=== PATIENT | male | born 2000 | race Hispanic/Latino ===

== ENCOUNTER 2019-07-31 22:41 | Emergency (ER) | payer OTHER ==
[~2019-07-31] VITALS: Ht 170.2 cm; Wt 65.0 kg
[2019-07-31 22:41] VITALS: BP 156/81
== END 2019-08-01 00:03 | disposition home or self-care (01) ==
LOC: M ED 22:41
DX: J02.9 Acute pharyngitis, unspecified (principal); R05 Cough

== ENCOUNTER 2019-08-27 21:48 | Emergency (ER) | payer OTHER ==
[~2019-08-27] VITALS: Ht 170.2 cm; Wt 73.4 kg
[2019-08-27 22:38] LABS: HEMATOCRIT 48.3 % (42.0-52.0); HEMOGLOBIN 17.5 g/dl (13.5-17.5); MEAN CORPUSCULAR HEMOGLOBIN 32.7 pg (27.0-33.0); MEAN CORPUSCULAR HGB CONC 36.2 g/dl (32.0-36.5); MEAN CORPUSCULAR VOLUME 90.3 fl (80.0-96.0); PLATELET COUNT, AUTOMATED 217 10^3/uL (150-450); RED BLOOD COUNT 5.35 10^6/uL (4.30-6.10); WHITE BLOOD COUNT 9.2 10^3/uL (4.0-10.0)
[2019-08-27 22:57] LABS: AMPHETAMINES LEVEL URINE NEGATIVE (NEGATIVE); BARBITURATES URINE NEGATIVE (NEGATIVE); BENZODIAZEPINES URINE NEGATIVE (NEGATIVE); CANNABINOIDS URINE NEGATIVE (NEGATIVE); COCAINE METABOLITE URINE NEGATIVE (NEGATIVE); METHADONE URINE NEGATIVE (NEGATIVE); OPIATES URINE NEGATIVE (NEGATIVE); PHENCYCLIDINE URINE NEGATIVE (NEGATIVE)
[2019-08-27 23:07] LABS: ACETAMINOPHEN LEVEL < 2.0 UG/ML (10.0-30.0); ALBUMIN 4.4 GM/DL (3.2-5.2); ALT/SGPT 26 U/L (12-78); BILIRUBIN,DIRECT 0.2 MG/DL (0.0-0.2); BILIRUBIN,TOTAL 0.7 MG/DL (0.2-1.0); BLOOD UREA NITROGEN 17 MG/DL (7-18); CALCIUM LEVEL 8.9 MG/DL (8.5-10.1); CARBON DIOXIDE LEVEL 31 MEQ/L (21-32); CHLORIDE LEVEL 105 MEQ/L (98-107); CREATININE FOR GFR 1.01 MG/DL (0.70-1.30); ETHYL ALCOHOL (ETHANOL) < 0.003 % (0.000-0.010); GLOMERULAR FILTRATION RATE > 60.0 (>60); GLUCOSE, FASTING 84 MG/DL (70-100); POTASSIUM SERUM 4.2 MEQ/L (3.5-5.1); SALICYLATE LEVEL < 1.7 MG/DL (5.0-30.0); SODIUM LEVEL 140 MEQ/L (136-145); TOTAL PROTEIN 8.3 GM/DL (6.4-8.2)
[2019-08-27 23:26] VITALS: BP 153/70
== END 2019-08-27 23:27 | disposition home or self-care (01) ==
LOC: M ED 21:48
DX: F32.9 Major depressive disorder, single episode, unspecified (principal)
CPT/HCPCS: 36415; 80048; 80076; 80307; 84443; 85027; 99284; G0480

== ENCOUNTER 2019-08-31 14:27 | Inpatient (IN) | payer OTHER ==
[~2019-08-31] VITALS: Ht 170.2 cm; Wt 73.3 kg
[2019-08-31 15:42] LABS: HEMATOCRIT 45.7 % (42.0-52.0); HEMOGLOBIN 16.5 g/dl (13.5-17.5); MEAN CORPUSCULAR HEMOGLOBIN 31.7 pg (27.0-33.0); MEAN CORPUSCULAR HGB CONC 36.1 g/dl (32.0-36.5); MEAN CORPUSCULAR VOLUME 87.9 fl (80.0-96.0); PLATELET COUNT, AUTOMATED 212 10^3/uL (150-450); WHITE BLOOD COUNT 10.7 10^3/uL (4.0-10.0)
[2019-08-31 16:06] LABS: AMPHETAMINES LEVEL URINE NEGATIVE (NEGATIVE); BARBITURATES URINE NEGATIVE (NEGATIVE); BENZODIAZEPINES URINE NEGATIVE (NEGATIVE); CANNABINOIDS URINE NEGATIVE (NEGATIVE); COCAINE METABOLITE URINE NEGATIVE (NEGATIVE); METHADONE URINE NEGATIVE (NEGATIVE); OPIATES URINE NEGATIVE (NEGATIVE); PHENCYCLIDINE URINE NEGATIVE (NEGATIVE)
[2019-08-31 16:24] LABS: ACETAMINOPHEN LEVEL < 2.0 UG/ML (10.0-30.0); ALBUMIN 4.3 GM/DL (3.2-5.2); ALT/SGPT 24 U/L (12-78); BILIRUBIN,DIRECT 0.3 MG/DL (0.0-0.2); BILIRUBIN,TOTAL 0.9 MG/DL (0.2-1.0); BLOOD UREA NITROGEN 13 MG/DL (7-18); CARBON DIOXIDE LEVEL 28 MEQ/L (21-32); CHLORIDE LEVEL 104 MEQ/L (98-107); CREATININE FOR GFR 0.82 MG/DL (0.70-1.30); ETHYL ALCOHOL (ETHANOL) < 0.003 % (0.000-0.010); GLOMERULAR FILTRATION RATE > 60.0 (>60); GLUCOSE, FASTING 108 MG/DL (70-100); POTASSIUM SERUM 3.8 MEQ/L (3.5-5.1); SALICYLATE LEVEL < 1.7 MG/DL (5.0-30.0); SODIUM LEVEL 137 MEQ/L (136-145); THYROID STIMULATING HORMONE 0.817 uIU/ML (0.358-3.740); TOTAL PROTEIN 7.9 GM/DL (6.4-8.2)
[2019-08-31] MEDS ORDERED: MAALOX 30 ML SUSP *UDC PO PRN (20:45)
[2019-08-31] MEDS ORDERED: OLANZapine ORAL DISINTEGRATING TAB 5MG PO PRN (20:45)
[2019-08-31] MEDS ORDERED: ACETAMINOPHEN TAB 650MG DOSE (2X325MG) PO PRN (20:45)
[2019-08-31] MEDS ORDERED: MOM 30ML SUSPENSION UDC PO PRN (20:45)
[2019-08-31] MEDS ORDERED: traZODone 50 MG TAB PO PRN (20:45)
[2019-08-31 22:08] VITALS: BP 140/85
[2019-09-01 06:13] VITALS: BP 123/78
--- NOTE | 2019-09-01 09:06 | MHHPEPDOC ---
General Date Of Admission: August 31, 2019 Legal Status: 9.13 Chief Complaint "It's whatever" History of Present Illness HISTORY OF THE PRESENT ILLNESS: Patient is a 19 -year-old , male, who Pr esents to [facility] with this chain of command after reporting passive ideation. The patient was admitted out of an abundance off caution on a voluntary status as he wished of care. When the patient was met with he was unusual in the fact that he was fairly unengaged in the conversation. He generally referred to generalities, stating "all that stuff" without wanting to specify any further about symptoms or other presenting problems. He would generally refer to "family health" or other issues. He generally was uninterested in discussing anything in-depth but strange enough was interested in counseling. After discussion, the patient reported to continued stay to try medication. was amenable to continued stay to try medication. Psychiatric Review of Systems Depression (2 or more weeks): decreased energy Valerie (4 or more days of): denies Psychosis: denies PTSD: denies Anxiety: stressor related anxiety Past Psychiatric History Previous Psychiatric Diagnosis: Depression. Previous Psychiatric Admissions: none. Suicide Attempts: denies . Psychiatric Follow-up: [facility]. Psychiatric medications: none. Past Medical History Medical Problems no significant history Addiction History denies Social History Childhood: [place], difficult by reported Abuse/Trauma:denies hx of abuse, reports seeing a friend Current Living Situation: lives in the [facility] . Education: HS Grad. 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 Social Support: some friends . Legal: none noted. Marital: single, unmarried . Mental Status Examination General Appearance: well groomed Build: average Demeanor: guarded Eye Contact: average Activity: average Behavior: uncooperative Speech: clear Mood: euthymic Mood "okay" Affect: full Thought Process: logical/linear Thought Content (Delusions): denies SI, HI, AVH Thought Content (Other): none reported Thought Content (Aggressive): none reported Perception (Hallucinations): none reported Perception (Other): none reported Cognition (Impairment of): none reported Cognition(Intelligence Est.): average Oriented: Awake, Alert Insight: poor Judgment: Fair Psychosis: Denies A-FIB/CHADSVASC A-FIB History Current/History of A-Fib/PAF?: No Assessment 19 yo with a history of reported depression present voluntarily to unit to for treatment but seems very uninterested in care, appears to have primarily stressors and there is some concerns that there could be a secondary gain to avoid. Problem List Problems: (1) Suicidal ideation Status: Resolved Problem Text: situational stressor related likley (2) Depressed mood Status: Acute Response to Treatment: Improving Discussed With: Nurse Problem Text: start sertraline 25mg daily, discussed risks and benifits as well common side effects (3) Situational disturbance Status: Chronic Response to Treatment: Uncontrolled Problem Text: situational problem with (4) Malingering Status: Acute Response to Treatment: Stable Problem Text: Seems to be very uninvovled in treatment, presenting on his own and volentarily but only seeming to take medications to stay longer Initial Treatment Plan 1. Patient was admitted on a [9.13] status. 2. Complete history was obtained. 3. With patients permission, family will be contacted and database will be expanded. 4. Patients medication regimen will be reviewed and changed accordingly. 5. Patient will be provided with protected environment. 6. Patient will be treated with individual, group, and milieu therapies. 7. Patient will receive supportive psych-education. 8. Discharge planning will commence immediately. 9. Outpatient follow-up treatment will be strongly recommended. 10. The initial treatment plan will focus initially on: * Depression. * Risk for suicide. ESTIMATED LENGTH OF STAY: 2-3 DAYS. TIME SPENT COUNSELING AND COORDINATING INITIAL CARE: 70 minutes with 50% of time on c/c. Vital Signs Vital Signs Date Time Temp Pulse Resp B/P (MAP) Pulse Ox O2 Delivery O2 Flow Rate FiO2 09/01/19 06:13 97.6 69 12 123/78 (93) 08/31/19 21:18 97 Room Air Laboratory Data 24H Labs Laboratory Tests 2 08/31/19 15:21: Nucleated Red Blood Cells % (auto) 0.0, Anion Gap 5L, Glomerular Filtration Rate > 60.0, Calcium Level 9.0, Total Bilirubin 0.9, Direct Bilirubin 0.3H, Aspartate Amino Transf (AST/SGOT) 10, Alanine Aminotransferase (ALT/SGPT) 24, Alkaline Phosphatase 74, Total Protein 7.9, Albumin 4.3, Albumin/Globulin Ratio 1.2, Thyroid Stimulating Hormone (TSH) 0.817, Salicylates Level < 1.7L, Urine Opiates Screen NEGATIVE, Urine Methadone Screen NEGATIVE, Acetaminophen Level < 2.0L, Urine Barbiturates Screen NEGATIVE, Urine Phencyclidine Screen NEGATIVE, Urine Amphetamines Screen NEGATIVE, Urine Benzodiazepines Screen NEGATIVE, Urine Cocaine Metabolite Screen NEGATIVE, Urine Cannabinoids Screen NEGATIVE, Ethyl Alcohol Level < 0.003 CBC/BMP Laboratory Tests 08/31/19 15:21 Medications No Active Prescriptions or Reported Meds Allergies Coded Allergies: No Known Allergies (Unverified , 07/31/19) HARPER MAGALLANES DO September 01, 2019 09:06
--- NOTE | 2019-09-01 16:54 | HPEPDOC ---
General Date of Admission August 31, 2019 at 20:36 Date of Service: September 01, 2019 Chief Complaint The patient is a 19-year-old male admitted with a reason for visit of Unspecified Depressive Disorder. Source: Patient Exam Limitations: No limitations Timing/Duration: Unsure Severity: Moderate History of Present Illness Patient is 19 years old male w past medical history of anxiety and depression, who was admitted in the hospital with increased level of anxiety and depression He denied any cardiovascular problem, breathing problem, GI problem or dysuria. He denies fever, chills, nausea, vomiting, shortness of breath, palpitations, diarrhea or dysuria Home Medications No Active Prescriptions or Reported Meds Allergies Coded Allergies: No Known Allergies (Unverified , 07/31/19) Past Medical History Medical History Anxiety and depression Family History Mother has coronary artery diseases and MS Social History * Smoker: Denies Alcohol: Denies Drugs: denies A-FIB/CHADSVASC A-FIB History Current/History of A-Fib/PAF?: No Current PO Anticoag Therapy: No Review of Systems Constitutional: Denies: Chills Eyes: Denies: Pain, Vision change ENT: Denies: Head Aches Skin: Denies: Rash, Lesions Pulmonary: Denies: Dyspnea, Cough Cardiovascular: Denies: Palpitations Gastrointestinal: Denies: Nausea Genitourinary: Denies: Dysuria Hematologic: Denies: Bruising Endocrine: Denies: Polydipsia, Polyphagia Musculoskeletal: Denies: Neck Pain Neurological: Denies: Weakness Psych: Reports: Anxiety Physical Examination General Exam: Positive: Alert, Cooperative, Mild Distress Eye Exam: Positive: PERRLA ENT Exam: Positive: Atraumatic Neck Exam: Positive: Supple Chest Exam: Positive: Clear to auscultation Heart Exam: Positive: Rate Normal Telemetry: Positive: No significant arrhythmia Abdomen Exam: Positive: Normal bowel sounds Extremity Exam: Negative: Clubbing, Cyanosis Skin Exam: Positive: Nl turgor and temperature Neuro Exam: Positive: Normal Gait, Strength at 5/5 X4 ext, Cranial Nerves 3-12 NL Psych Exam: Positive: Anxiety Vital Signs Vital Signs Date Time Temp Pulse Resp B/P (MAP) Pulse Ox O2 Delivery O2 Flow Rate FiO2 09/01/19 09:54 Room Air 09/01/19 06:13 97.6 69 12 123/78 (93) 08/31/19 21:18 97 Assessment/Plan Patient is 19 years old male w past medical history of anxiety and depression, who was admitted in the hospital with increased level of anxiety and depression He denied any cardiovascular problem, breathing problem, GI problem or dysuria. He denies fever, chills, nausea, vomiting, shortness of breath, palpitations, diarrhea or dysuria Problems (1) Depression Status: Acute Problem Text: We'll defer treatment of depression and anxiety to psych team Plan / VTE VTE Prophylaxis Ordered?: No VTE Exclusion Mechanical Proph: Low Risk for VTE LÓPEZ COUCH DO September 01, 2019 16:54
[2019-09-02 06:14] VITALS: BP 127/74
--- NOTE | 2019-09-02 09:05 | MHIPNPDOC ---
[facility] Progress Note Progress Note The patient was seen on 09/03/19. The patient is seen in follow-up today, he reports that he is doing better and has been making improvements. For some reason he was not able to be given the certainly is the order did not go through. He reports otherwise he's she doing quite well and has been engaged on the unit. He reports he is not had any other problems other than some insomnia for what she's taken trazodone. There is a self-report he is generally pleasant without any major problems. The patient is interested in being discharged. Vital Signs Vital Signs Date Time Temp Pulse Resp B/P (MAP) Pulse Ox O2 Delivery O2 Flow Rate FiO2 09/02/19 06:14 97.7 64 12 127/74 (91) Room Air 08/31/19 21:18 97 Current Medications Current Medications Medications (Trade) Dose Ordered Sig/Chaz Route PRN Reason Start Time Stop Time Status Last Admin Dose Admin Acetaminophen (Tylenol Tab) 650 mg Q6HP PRN PO HEADACHE or DISCOMFORT 08/31/19 20:45 09/01/19 20:52 Al Hydrox/Mg Hydrox/Simethicone (Mylanta) 30 ml Q4HP PRN PO HEARTBURN/INDIGESTION 08/31/19 20:45 Home Med (Med Rec Complete!) ASDIRECTED XX 08/31/19 19:00 08/31/19 18:59 DC Magnesium Hydroxide (Milk Of Magnesia) 30 ml DAILYPRN PRN PO CONSTIPATION 08/31/19 20:45 Olanzapine (ZyPREXA ZYDIS) 5 mg Q4HP PRN PO AGITATION 08/31/19 20:45 Trazodone HCl (Desyrel) 50 mg QHSP PRN PO INSOMNIA 08/31/19 20:45 Allergies Coded Allergies: No Known Allergies (Unverified , 07/31/19) Review of Systems Review of Systems Pulmonary: Denies: Dyspnea, Cough Cardiovascular: Denies: Chest Pain, Palpitations Mental Status Examination General Appearance: well groomed Build: average Demeanor: average Eye Contact: average Activity: average Behavior: cooperative Speech: clear Mood: euthymic Mood "Fine" Affect: full Thought Process: logical/linear Thought Content (Delusions): denies SI, HI, AVH Thought Content (Aggressive): none reported Perception (Hallucinations): none reported Perception (Other): none reported Cognition (Impairment of): none reported Cognition(Intelligence Est.): average Insight: fair Judgment: Fair Psychosis: Denies Problem List Problems: (1) Suicidal ideation Status: Resolved (2) Depressed mood Status: Acute Response to Treatment: Stable Problem Text: Defer to outpatient as to whether medication is needed, likely adjustment disorder at this time. (3) Situational disturbance Status: Chronic Response to Treatment: Stable (4) Malingering Status: Acute Response to Treatment: Stable Vital Signs Vital Signs Date Time Temp Pulse Resp B/P (MAP) Pulse Ox O2 Delivery O2 Flow Rate FiO2 09/02/19 06:14 97.7 64 12 127/74 (91) Room Air 08/31/19 21:18 97 Medications Scheduled PRN Trazodone HCl (Trazodone HCl) 50 Mg Tablet, 50 MG PO QHSP PRN for INSOMNIA HARPER MAGALLANES DO September 02, 2019 09:05
[2019-09-02 17:01] VITALS: BP 135/65
[2019-09-03 05:54] VITALS: BP 116/57
--- NOTE | 2019-09-03 10:18 | MHDSPDOC ---
[facility] Discharge Summary Discharge Summary DATE OF ADMISSION: August 31, 2019 at 20:36 DATE OF DISCHARGE:September 03, 2019 at 13:50 DISCHARGE DIAGNOSES: 1. Unspecified depressive disorder. 2. Malingering. REASON FOR ADMISSION:. The patient a 19-year-old man with likely adjustment process presents after reportedly becoming upset and making a passive suicidal statement to a chain of command officer. CONSULTANTS INVOLVED: none TREATMENT AND PROGRESS ON THE UNIT :. The patient was admitted to the inpatient unit, initially had intended to place patient on searching at his request, however, the order did not go through. However, he made good improvement without any medications generally becoming euthymic, his symptoms were generally poorly described in he was disinterested in further description. He was well behaved without any other problems and appeared primarily interested in demonstrating stronger symptoms than what appeared to be present on observation.. DISCHARGE ASSESSMENT: 19-year-old man with likely adjustment problems presents specifically wanting accommodation notes from providers in order to change companies, it appears that he is likely magnifying and even manufacturing some of his symptoms. The patient at the time of discharge did not meet criteria for involuntary admission/extension due to having a normal mental status exam, improved insight into the situation, They are engaged in the discharge process, as well as being friendly and amenable in behavioral control and havent been engaging in any observed concerning behavior or ideation recently. They decline voluntary extension/admission at this time and must be discharged in good juan, as Im unable to make a case for holding the patient against their will. They may have historical risk factors of admissions and other interactions with psychiatry however, those are not modifiable from a clinical perspective. The patient will need to be discharged in good juan. MENTAL STATUS EXAMINATION ON DISCHARGE: General: Well dressed with good hygiene Speech: Spontaneous and fluid Thought processes: Linear and logical Thought content: Future orientated Abstract reasoning, and computation: Intact Description of associations: Intact Description of abnormal or psychotic thoughts:Denies any suicidal or homicidal ideation. Denies any auditory or visual hallucinations. Does not appear to be responding to internal stimuli. Does not appear to be endorsing any bizarre or paranoid ideation. Judgment: likely chronically limited Insight: somewhat better, although likely chronically limited Orientation: Alert and orientated 3 Recent and remote memory: Intact Attention span and concentration: Intact Fund of knowledge: Adequate Mood: "okay" Affect: Euthymic with a full range PLAN/FOLLOWUP ARRANGEMENTS: [facility]. The amount of time spent in the coordination of care for this patient was cathy roximately 45 minutes. Vital Signs/I&Os Vital Signs Date Time Temp Pulse Resp B/P (MAP) Pulse Ox O2 Delivery O2 Flow Rate FiO2 09/03/19 05:54 97.5 54 16 116/57 (76) 98 Room Air Medications Scheduled PRN Trazodone HCl (Trazodone HCl) 50 Mg Tablet, 50 MG PO QHSP PRN for INSOMNIA for 7 Days, #7 Allergies Coded Allergies: No Known Allergies (Unverified , 07/31/19) HARPER MAGALLANES DO September 03, 2019 10:18
[2019-09-03] MEDS ORDERED: TRAZ-252 PO (11:11)
== END 2019-09-03 13:50 | disposition home or self-care (01) | DRG 881 ==
LOC: M ED 14:27 → M ED INP 20:36 → M PSY 22:05
PROVIDERS: ADMIT Psychiatry & Neurology Addiction Medicine; ATTEND Psychiatry & Neurology Addiction Medicine
DX: F32.9 Major depressive disorder, single episode, unspecified (principal); Z76.5 Malingerer [conscious simulation]; F43.20 Adjustment disorder, unspecified

== ENCOUNTER 2020-03-29 21:18 | Emergency (ER) | payer OTHER ==
[~2020-03-29] VITALS: Ht 170.2 cm; Wt 87.1 kg
[~2020-03-29 21:18] MED LIST: TRAZ-252 PO
[2020-03-29] MEDS ORDERED: ESCI10TA2 PO (21:32)
[2020-03-29] MEDS ORDERED: GABA-845 PO (21:32)
[2020-03-30] MEDS ORDERED: KETOROLAC 30 MG/ML 1ML VIAL IV ONE (00:45)
[2020-03-30] MEDS ORDERED: NS 1,000 ML IV ONE (00:45)
[2020-03-30 01:11] LABS: BASO % 0.5 % (0.0-1.0); EOS # 0.2 10^3/uL (0.0-0.5); EOS % 2.5 % (0.0-3.0); HEMATOCRIT 42.3 % (42.0-52.0); HEMOGLOBIN 15.3 g/dl (13.5-17.5); LYMPH # 2.8 10^3/uL (1.5-5.0); LYMPH % 31.5 % (24.0-44.0); MEAN CORPUSCULAR HEMOGLOBIN 31.5 pg (27.0-33.0); MEAN CORPUSCULAR HGB CONC 36.2 g/dl (32.0-36.5); MEAN CORPUSCULAR VOLUME 87.2 fl (80.0-96.0); MONO # 0.8 10^3/uL (0.0-0.8); MONO % 8.6 % (0.0-5.0); NEUTROPHILS % 56.4 % (36.0-66.0); PLATELET COUNT, AUTOMATED 213 10^3/uL (150-450); RED BLOOD COUNT 4.85 10^6/uL (4.30-6.10); WHITE BLOOD COUNT 8.9 10^3/uL (4.0-10.0)
[2020-03-30] MEDS ORDERED: ISOVUE-370 76% 100ML VIAL As Ordered ONE (01:23)
[2020-03-30 01:33] LABS: INR 0.96; PARTIAL THROMBOPLASTIN TIME 28.1 SECONDS (24.2-38.5)
[2020-03-30 01:34] LABS: ALBUMIN 4.1 GM/DL (3.2-5.2); ALT/SGPT 84 U/L (12-78); BILIRUBIN,DIRECT < 0.1 MG/DL (0.0-0.2); BILIRUBIN,TOTAL 0.4 MG/DL (0.2-1.0); LIPASE 120 U/L (73-393); TOTAL PROTEIN 7.8 GM/DL (6.4-8.2)
--- NOTE | 2020-03-30 02:03 | REPVR ---
PROCEDURE INFORMATION: Exam: CT Abdomen And Pelvis With Contrast Exam date and time: 03/30/2020 1:16 AM Age: 20 years old Clinical indication: Abdominal pain; Generalized; Additional info: Abd pain/rectal bleeding TECHNIQUE: Imaging protocol: Computed tomography of the abdomen and pelvis with intravenous contrast. Radiation optimization: All CT scans at this facility use at least one of these dose optimization techniques: automated exposure control; mA and/or kV adjustment per patient size (includes targeted exams where dose is matched to clinical indication); or iterative reconstruction. Contrast material: ISO; Contrast volume: 100 ml; Contrast route: INTRAVENOUS (IV); COMPARISON: No relevant prior studies available. FINDINGS: Liver: Normal. No mass. Gallbladder and bile ducts: Normal. No calcified stones. No ductal dilation. Pancreas: Normal. No ductal dilation. Spleen: Normal. No splenomegaly. Adrenal glands: Normal. No mass. Kidneys and ureters: Normal. No hydronephrosis. Stomach and bowel: Possible mild anal soft tissue thickening with mild adjacent soft tissue stranding. No inflammatory changes are seen in the pelvic floor. Moderate amount of fecal material throughout the colon. Colon is otherwise unremarkable small bowel is unremarkable. No inflammatory changes in the colon or small bowel. Appendix: No evidence of appendicitis. Intraperitoneal space: Unremarkable. No free air. No significant fluid collection. Vasculature: Unremarkable. No abdominal aortic aneurysm. Lymph nodes: Unremarkable. No enlarged lymph nodes. Urinary bladder: Unremarkable as visualized. Reproductive: Unremarkable as visualized. Bones/joints: Unremarkable. No acute fracture. Soft tissues: No perianal abscess is seen. IMPRESSION: 1. Possible mild perianal soft tissue thickening with mild surrounding soft tissue edema/stranding. No perianal abscess. 2. Constipation. Electronically signed by: Bob Cortez On 03/30/2020 02:03:25 AM
[2020-03-30 02:14] VITALS: BP 160/79
[2020-03-30] MEDS ORDERED: COLA100C5 PO (02:14)
[2020-03-30] MEDS ORDERED: AUGM875T28 PO (02:14)
[2020-03-30] MEDS ORDERED: MIRA3350 PO (02:14)
[2020-03-30] MEDS ORDERED: AUGMENTIN 875 MG TAB PO ONE (02:15)
== END 2020-03-30 02:24 | disposition home or self-care (01) ==
LOC: M ED 21:18
DX: K59.00 Constipation, unspecified (principal); L03.315 Cellulitis of perineum; F41.9 Anxiety disorder, unspecified; F32.9 Major depressive disorder, single episode, unspecified
CPT/HCPCS: 74177; 80047; 80076; 81001; 83690; 85025; 85610; 85730; 96361; 96374; 99284; J1885; Q9967

== ENCOUNTER 2020-04-23 13:00 | Emergency (ER) | payer OTHER ==
[~2020-04-23] VITALS: Ht 170.2 cm; Wt 87.7 kg
[~2020-04-23 13:00] MED LIST changes: +AUGM875T28 PO; +COLA100C5 PO; +ESCI10TA16 PO; +GABA-845 PO; +MIRA3350 PO
--- OUTSIDE RECORDS SUMMARY | 2020-04-23 13:06 | CCD ---
Author Author [facility] Organization [facility] Address Unknown Phone Unavailable Care Team Providers Care Spooling Machine Operator Name Role Phone SKYLA ACOSTA MD Unavailable Unavailable SKYLA ACOSTA MD Unavailable Unavailable SKYLA ACOSTA MD Unavailable Unavailable SKYLA ACOSTA MD Unavailable Unavailable SKYLA ACOSTA MD Unavailable Unavailable SKYLA ACOSTA MD Unavailable Unavailable SKYLA ACOSTA MD Unavailable Unavailable SKYLA ACOSTA MD Unavailable Unavailable SKYLA ACOSTA MD Unavailable Unavailable SKYLA ACOSTA MD Unavailable Unavailable SKYLA ACOSTA MD Unavailable Unavailable SKYLA ACOSTA MD Unavailable Unavailable Re-disclosure Warning The records that you are about to access may contain information from federally-assisted alcohol or drug abuse programs. If such information is present, then the following federally mandated warning applies: This information has been disclosed to you from records protected by federal confidentiality rules (42 CFR part 2). The federal rules prohibit you from making any further disclosure of this information unless further disclosure is expressly permitted by the written consent of the person to whom it pertains or as otherwise permitted by 42 CFR part 2. A general authorization for the release of medical or other information is NOT sufficient for this purpose. The Federal rules restrict any use of the information to criminally investigate or prosecute any alcohol or drug abuse patient.The records that you are about to access may contain highly sensitive health information, the redisclosure of which is protected by Article 27-F of the [facility] Public Health law. If you continue you may have access to information: Regarding HIV / AIDS; Provided by facilities licensed or operated by the [facility] Office of Mental Health; or Provided by the [facility] Office for People With Developmental Disabilities. If such information is present, then the following [facility] mandated warning applies: This information has been disclosed to you from confidential records which are protected by state law. State law prohibits you from making any further disclosure of this information without the specific written consent of the person to whom it pertains, or as otherwise permitted by law. Any unauthorized further disclosure in violation of state law may result in a fine or snf sentence or both. A general authorization for the release of medical or other information is NOT sufficient authorization for further disc losure. Encounters Encounter Providers Location Date Indications Data Source(s ) Emergency Attender: SKYLA ACOSTA MD 0 12/13/2019 02:37:00 PM EDT - 12/13/2019 03:01:00 PM EDT [facility] Patient discharged. Medications Medication Brand Name Start Date Product Form Dose Route Admi nistrative Instructions Pharmacy Instructions Status Indications Reaction Description Data Source(s) 8 HR Acetaminophen 650 MG Extended Release Oral Tablet [Tyle nol] Tylenol 8 Hour 09/14/2019 12:00:00 AM EDT active [facility] ([facility] ) Insurance Providers Payer name Policy type / Coverage type Policy ID Covered libertarian ID Covered libertarian's relationship to urena Policy Urena Plan Information [facility] ACTIVE DUTY [id number] SP [id number] [facility] HUMANA - O/P [id number] 18 [id number] Problems, Conditions, and Diagnoses Code Display Name Description Problem Type Effective Dates Data Source(s) 06450779 Paresthesia of upper limb Paresthesia of upper limb Pr oblem 09/14/2019 12:00:00 AM EDT [facility] ([facility]) [id number] Cubital tunnel syndrome Cubital tunnel syndrome Proble m 09/14/2019 12:00:00 AM EDT [facility] ([facility]) [id number] Pain in forearm Pain in forearm Problem 09/14/2019 12:0 0:00 AM EDT [facility] ([facility]) [id number] Nicotine dependence, cigarettes, uncompl icated Nicotine dependence, cigarettes, uncomplicated Diagnosis 12/13/2019 02:37:00 PM EDT [facility] Z036 Encounter for observation fo r suspected toxic effect from ingested substance ruled out Encounter for observation for suspected toxic effect from ingested substance ruled out Diagnosis 12/13/2019 02:37:00 PM EDT [facility] Surgeries/Procedures Procedure Description Date Indications Data Source(s) Needle electromyography, each extremity, with related paraspinal areas, when performed, done with nerve conduction, amplitude and latency/velocity study; complete, five or more muscles studied, innervated by three or more nerves or four or more spinal levels (list separately in addition to the code for primary procedure). 09/14/2019 12:00:00 AM EDT MEDEN T ([facility]) Needle Electromyography Non Extremity Done With Nerve Conduc tion 09/14/2019 12:00:00 AM EDT [facility] ([facility]) Nerve Conduction 9-10 Studies 09/14/2019 12:00:00 AM E DT [facility] ([facility]) Results ID Date Data Source [id number] 12/13/2019 02:37:00 PM EDT [facility] 1 Medication Reconciliation Report [facility] Emergency Department [address] [place] [address] Phone #: ext- [phone] 12/13/2019 14:24 Patient: PARISH SOLANO Sex: M : 2000 Age: 19yWeight: 72.5 kgHeight/Length: 67 in.BMI: 25.1ALLERGIES: NoneThe patient's Home Medications are listed below:CONTINUE TAKING THE FOLLOWING MEDICATIONS: AntidepressantThe source(s) of the original Home Medication information:Not obtained.The following Medications were given to the patient in the Emergency Department:None.The following Medications were prescribed to the patient:None. Name Value Range Interpretation Code Description Data [facility](s) Supporting Document(s) ID Date Data Source [id number] 12/13/2019 02:37:00 PM EDT [facility] 1 Medication Administration Record [facility] Emergency Department [address] [place] [address] Phone #: ext- [phone] 12/13/2019 14:24 Patient: PARISH SOLANO Sex: M : 2000 Age: 19yWeight: 72.5 kgHeight/Length: 67 inBMI: 25.1ALLERGIES: NoneDate/Time Medication Administered Medication Ordered Name Value Range Interpretation Code Description Data [facility](s) Supporting Document(s) ID Date Data Source [id number] 12/13/2019 02:37:00 PM EDT [facility] 1 General Instructions [facility] Emergency Department [address] [place] [address] Phone #: ext [phone] 12/13/2019 14:24 Patient: PARISH SOLANO Sex: M : 2000 Age: 19yNormal exam.INSTRUCTIONSYour Current Medications: Your current home medications have been reviewed.CONTINUE TAKING THE FOLLOWING MEDICATIONS:Antidepressant*.Follow-up:Return to the emergency department as needed. Follow up with your healthcare provider Saturday asneeded.Understanding of the discharge instructions verbalized by patient.(Electronically signed by Foreign Berumen PA-C, 12/13/2019 20:36) Name Value Range Interpretation Code Description Data [facility] r[facility](s) Supporting Document(s) ID Date Data Source [id number] 12/13/2019 02:37:00 PM EDT [facility] 1 Clinical Report - Nurses [facility] Emergency Department [address] [place] [address] Phone #: ext- [phone] 12/13/2019 14:24 Patient: PARISH SOLANO Sex: M : 2000 Age: 19yTRIAGEArrived by private vehicle. Historian: patient. Accompanied by friend. 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 Acuity: LEVEL 5.Chief Complaint: (exposure to sweat from soldier on LSD, nausea).Alert. No acute distress.Onset. (2 1/2 hours).Treatment RUBBERIZING MECHANIC:None.SEPSIS SCREEN: SIRS Screen negative. Sepsis Screen negative. No suspected or confirmed signs ofinfection present. --14:55 12/13/19 Karin Verdugo, CONSTANTINO14:50 12/13/19. BP: 133/72. MAP: 92. HR: 84. RR: 18. O2 saturation: 97%. Temp: 98.3 F. Pain level now:0/10. --14:55 12/13/19 Karin Verdugo, CONSTANTINO.Weight: 72.5 kg stated. Height/Length: 67 inches Per Patient. BMI: 25.1. --14:53 12/13/19 Karin Verdugo, RN.MedicationsAntidepressant. --14:50 12/13/19 Karin Verdugo, RN.AllergiesNone. --14:51 12/13/19 Karin Verdugo, CONSTANTINO.PROBLEMS:Elbow problem.Anxiety disorder.Depression. --14:51 12/13/19 Karin Verdugo, RN.ADDITIONAL SURGERIES:no known surgeries.HistorySOCIAL HX: Smoker- current status unknown (2 cigs day). Occasional alcohol use. No drug use. Hewas offered HIV testing but declined and hepatitis C testing but declined. He has not traveled outside the[place]Infectious disease exposure: No infectious disease exposure. 2 Clinical Report - Nurses [facility] Emergency Department [address] [place] [address] Phone #: ext- [phone] 12/13/2019 14:24 Patient: PARISH SOLANO Sex: M : 2000 Age: 19y SELF HARM ASSESSMENT: Self harm assessment was performed. The patient answered "no" to the question(s) "Have you recently felt down, depressed, or hopeless?". ABUSE ASSESSMENT: No report of abuse. NUTRITIONAL RISK ASSESSMENT: The nutritional risk assessment revealed no deficiencies. FUNCTIONAL ASSESSMENT: Functional assessment: no impairments noted. LEARNING NEEDS ASSESSMENT: The learning needs assessment revealed no barriers. FALL RISK ASSESSMENT: Fall risk assessment completed. No risk factors identified. SKIN INTEGRITY ASSESSMENT: Skin integrity risk assessment completed. No skin integrity risk identified. --14:55 12/13/19 Karin Verdugo RN.PHYSICAL ASSESS MENT14:50 12/13/19. Ambulatory to room.GENERAL / NEURO / PSYCH: Alert. Oriented X 4. Appears in no acute distress.RESPIRATORY: Respirations not labored.CVS: Capillary refill less than 2 seconds. Pulses within normal limits.GI / : Abdomen nontender.SKIN: Skin is warm. Normal skin turgor. --17:03 12/13/19 Karin Verdugo, RN.NURSING PROGRESS NOTESReassurance given. Two patient identifiers checked. Bed placed in lowest position. Brakes of bed on.Patient ready for evaluation. --14:55 12/13/19 Karin Verdugo, RN.DISPOSITION / DISCHARGE Departure time: 15:01 12/13/2019. --17:02 12/13/19 Karin Verdugo, RN Condition at departure: unchanged. No learning barriers present. Discharge instructions provided and reviewed with the patient. Patient verbalized understanding. Written instructions provided in Turkmen. The patient was discharged by the physician executive marketing assistant. He was discharged home and accompanied by . He left ambulatory and via private vehicle. Driving (petraier). --17:02 12/13/19 Karin Verdugo RN.Locked/Released at 12/13/2019 17:03 by Karin Verdugo RN 3 Clinical Report - Nurses [facility] Emergency Department [address] [place] [address] Phone #: ext- [phone] 12/13/2019 14:24 Patient: PARISH SOLANO Sex: M : 2000 Age: 19y Name Value Range Interpretation Code Description Data [facility]ody rce(s) Supporting Document(s) ID Date Data Source [id number] 12/13/2019 02:37:00 PM EDT [facility] 1 Clinical Report - Physicians/Mid Levels [facility] Emergency Department [address] [place] [address] Phone #: ext- [phone] 12/13/2019 14:24 Patient: PARISH SOLANO Sex: M : 2000 Age: 19y Time Seen: 14:59 12/13/2019. Arrived- By private vehicle. Historian- patient. Disposition decision: 15:01 12/13/2019.HISTORY OF PRESENT ILLNESS Chief Complaint: possible exposure to LSD. This started just prior to arrival and is now gone. No current or associated symptoms.REVIEW OF SYSTEMSNo fever, chills, difficulty with urination, anorexia or chills. No fatigue, fever, muscle aches, sweats orweight loss. No skin rash, alteration in mental status, depression, dizziness or fainting episodes. Noheadache, head injury, numbness, seizure or suicidal thoughts. No weakness or anxiety. Denies sleepdisorder. No difficulty walking.PAST HISTORYSee nurses notes. Problems: Elbow problem. Anxiety disorder. Depression. Additional Surgeries: no known surgeries. Medications: Antidepressant. Allergies: None.SOCIAL HISTORYLight tobacco smoker- less than 1 /2 a pack per day. Alcohol use. No drug use.ADDITIONAL NOTESThe nursing notes have been reviewed.PHYSICAL EXAMVital Signs: 12/13/2019 14:50 BP: 133/72. MAP: 92. HR: 84. RR: 18. O2 saturation: 97%. Temp: 98.3 F.Pain level now: 0/10. Have been reviewed as normal. Oxygen saturation normal.Appearance: Alert. No acute distress.Eyes: Pupils equal, round and reactive to light. Eyes normal inspection. 2 Clinical Report - Physicians/Mid [facility] Emergency Department [address] [place] [address] Phone #: ext- [phone] 12/13/2019 14:24 Patient: PARISH SOLANO Sex: M : 2000 Age: 19y Neck: Normal inspection. Neck supple. CVS: Normal heart rate. Respiratory: No respiratory distress. Abdomen: No visible injury. Neuro: Oriented X 3.PROGRESS AND PROCEDURESCourse of Care: 15:00 12/13/19. ( Patient was on duty at [employer] and was exposed to a soldier withpossible LSD use. EMS and command wanted him evaluated. He is stable and has no symptoms afterbeing exposed over 2 hrs ago.Instructed to follow-up with PCM if symptoms persist or worsen. discu ssed results of encounter andproposed care plan. Explained return criteria. Answered all questions during the encounter. Patientverbalized agreement and understanding with care plan.). Disposition: Condition: good. Discharge decision based on the following: patient's condition is stable; patient is ambulatory; patient drinking fluids; patient's exam is stable; no abnormal test results; stable condition on repeat evaluation; social support is adequate; transportation is available; follow-up is available. Instructed to follow-up with PCM if symptoms persist or worsen. discussed results of encounter and proposed care plan. Explained return criteria. Answered all questions during the encounter. Patient verbalized agreement and understanding with care plan.CLINICAL IMPRESSION Normal exam (possible exposure to LSD).INSTRUCTIONS Your Current Medications: Your current home medications have been reviewed. CONTINUE TAKING THE FOLLOWING MEDICATIONS: Antidepressant*. Follow-up: Return to the emergency department as needed. Follow up with your healthcare provider Saturday as needed. Understanding of the discharge instructions verbalized by patient.(Electronically signed by Foreign Berumen PA-C, 12/13/2019 20:36) 3Clinical Report - Physicians/Mid Levels [facility] Emergency Department [address] [place] [address] Phone #: ext- [phone] 12/13/2019 14:24 Patient: PARISH SOLANO Sex: M : 2000 Age: 19y Name Value Range Interpretation Code Description Data Melody rce(s) Supporting Document(s) Procedure Vital Signs ID Date Data Source UNK Name Value Range Interpretation Code Description Data Source(s) Body mass index (BMI) [Ratio] 22.7 kg/m2 22.7 k g/m2 [facility] ([facility]) Body weight 145.00 [lb_av] 145.00 [lb_av] MEDEN T ([facility]) Body height 67 [in_i] 67 [in_i] [facility] ([facility]) 5'7" Heart rate 72 /min 72 /min [facility] ([facility]) Diastolic blood pressure 80 mm[Hg] 80 mm[Hg] [facility] ([facility]) Systolic blood pressure 120 mm[Hg] 120 mm[Hg] Wil BURNETT ([facility])
[2020-04-23] MEDS ORDERED: LORazepam 2 MG/ML VIAL IV STA (13:23)
--- OUTSIDE RECORDS SUMMARY | 2020-04-23 13:37 | CCD ---
Author Author [facility] Organization [facility] Address Unknown Phone Unavailable Care Team Providers Care Food And Beverage Checker Name Role Phone SKYLA ACOSTA MD Unavailable [...] is protected by Article 27-F of the [facility] Public Health law. If you continue you may have access to information: Regarding HIV / AIDS; Provided by facilities licensed or operated by the [facility] Office of Mental Health; or Provided by the [facility] Office for People With Developmental Disabilities. If such information is present, then the following [facility] mandated warning applies: This information has [...] law may result in a fine or skilled nursing sentence or both. A general authorization for the release of medical or other information is NOT sufficient authorization for further disc losure. Encounters Encounter Providers Location Date Indications Data Source(s ) Emergency Attender: SKYLA ACOSTA MD 0 12/13/2019 02:37:00 PM EDT - 12/13/2019 03:01:00 PM EDT [facility] Patient discharged. Medications Medication Brand Name Start Date Product Form Dose Route Admi nistrative Instructions Pharmacy Instructions Status Indications Reaction Description Data Source(s) 8 HR Acetaminophen 650 MG Extended Release Oral Tablet [Tyle nol] Tylenol 8 Hour 09/14/2019 12:00:00 AM EDT active [facility] ([facility] ) Insurance Providers Payer name Policy type / Coverage type Policy ID Covered alliance party ID Covered alliance party's relationship to urena Policy Urena Plan Information [facility] ACTIVE DUTY [id number] SP [id number] [facility] HUMANA - O/P [id number] 18 [id number] Problems, Conditions, and Diagnoses Code Display Name Description Problem Type Effective Dates Data Source(s) 29126888 Paresthesia of upper limb Paresthesia of upper limb Pr oblem 09/14/2019 12:00:00 AM EDT [facility] ([facility]) [id number] Cubital tunnel syndrome Cubital tunnel syndrome Proble m 09/14/2019 12:00:00 AM EDT [facility] ([facility]) [id number] Pain in forearm Pain in forearm Problem 09/14/2019 12:0 0:00 AM EDT [facility] ([facility]) U03882 Nicotine dependence, cigarettes, uncompl icated Nicotine dependence, cigarettes, uncomplicated Diagnosis 12/13/2019 02:37:00 PM EDT [facility] Z036 Encounter for observation fo r suspected toxic effect from ingested substance ruled out Encounter for observation for suspected toxic effect from ingested substance ruled out Diagnosis 12/13/2019 02:37:00 PM EDT [facility] Surgeries/Procedures Procedure Description Date Indications Data Source(s) Needle electromyography, each extremity, with related paraspinal areas, when performed, done with nerve conduction, amplitude and latency/velocity study; complete, five or more muscles studied, innervated by three or more nerves or four or more spinal levels (list separately in addition to the code for primary procedure). 09/14/2019 12:00:00 AM EDT [facility] T ([facility]) Needle Electromyography Non Extremity Done With Nerve Conduc tion 09/14/2019 12:00:00 AM EDT [facility] ([facility]) Nerve Conduction 9-10 Studies 09/14/2019 12:00:00 AM E DT [facility] ([facility]) Results ID Date Data Source [id number] 12/13/2019 02:37:00 PM EDT [facility] 1 Medication Reconciliation Report [facility] Emergency Department [address] [place] [address] Phone #: ext- [phone] 12/13/2019 14:24 Patient: [...] Name Value Range Interpretation Code Description Data [facility](s) Supporting Document(s) ID Date Data Source [id number] 12/13/2019 02:37:00 PM EDT [facility] 1 Medication Administration Record [facility] Emergency Department [address] [place] [address] Phone #: ext- [phone] 12/13/2019 14:24 Patient: PARISH SOLANO Sex: M : 2000 Age: 19yWeight: 72.5 kgHeight/Length: 67 inBMI: 25.1ALLERGIES: NoneDate/Time Medication Administered Medication Ordered Name Value Range Interpretation Code Description Data [facility](s) Supporting Document(s) ID Date Data Source [id number] 12/13/2019 02:37:00 PM EDT [facility] 1 General Instructions [facility] Emergency Department [address] [place] [address] Phone #: [phone] ext [phone] 12/13/2019 14:24 Patient: PARISH SOLANO Sex: M [...] rce(s) Supporting Document(s) ID Date Data Source [id number] 12/13/2019 02:37:00 PM EDT [facility] 1 Clinical Report - Nurses [facility] Emergency Department [address] [place] [address] Phone #: ext- [phone] 12/13/2019 14:24 Patient: PARISH SOLANO Sex: M [...] nausea).Alert. No acute distress.Onset. 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 Sepsis Screen negative. [...] disease exposure. 2 Clinical Report - Nurses [facility] Emergency Department [address] [place] [address] Phone #: ext- [phone] 12/13/2019 14:24 Patient: PARISH SOLANO Sex: M [...] Patient verbalized understanding. Written instructions provided in Danish. The patient was discharged by the physician nurse practitioner physicians assistant. He was discharged home and accompanied by . He left ambulatory and via private vehicle. Driving (petraier). --17:02 12/13/19 Karin Verdugo RN.Locked/Released at 12/13/2019 17:03 by Karin Verdugo RN 3 Clinical Report - Nurses [facility] Emergency Department [address] [place] [address] Phone #: ext- [phone] 12/13/2019 14:24 Patient: PARISH SOLANO Sex: M : 2000 Age: 19y Name Value Range Interpretation Code Description Data Melody rce(s) Supporting Document(s) ID Date Data Source [id number] 12/13/2019 02:37:00 PM EDT [facility] 1 Clinical Report - Physicians/Mid Levels [facility] Emergency Department [address] [place] [address] Phone #: ext- [phone] 12/13/2019 14:24 Patient: [...] normal inspection. 2 Clinical Report - Physicians/Mid [facility] Emergency Department [address] [place] [address] Phone #: ext- [phone] 12/13/2019 14:24 Patient: PARISH SOLANO Sex: M : 2000 Age: 19y Neck: Normal inspection. Neck supple. CVS: Normal heart rate. Respiratory: No respiratory distress. Abdomen: No visible injury. Neuro: Oriented X 3.PROGRESS AND PROCEDURESCourse of Care: 15:00 12/13/19. ( Patient was on duty at [employer] and was exposed to a soldier withpossible [...] 12/13/2019 20:36) 3Clinical Report - Physicians/Mid Levels [facility] Emergency Department [address] [place] [address] Phone #: ext- [phone] 12/13/2019 14:24 Patient: PARISH SOLANO Sex: M : 2000 Age: 19y Name Value Range Interpretation Code Description Data [facility]ody rce(s) Supporting Document(s) Procedure Vital Signs ID Date Data Source UNK Name Value Range Interpretation Code Description Data Source(s) Body mass index (BMI) [Ratio] 22.7 kg/m2 22.7 k g/m2 [facility] ([facility]) Body weight 145.00 [lb_av] 145.00 [lb_av] MEDEN T ([facility]) Body height 67 [in_i] 67 [in_i] [facility] ([facility]) 5'7" Heart rate 72 /min 72 /min [facility] ([facility]) Diastolic blood pressure 80 mm[Hg] 80 mm[Hg] [facility] ([facility]) Systolic blood pressure 120 mm[Hg] 120 mm[Hg] Wil BURNETT ([facility])
[2020-04-23 13:46] LABS: BASO % 0.3 % (0.0-1.0); EOS # 0.1 10^3/uL (0.0-0.5); EOS % 0.9 % (0.0-3.0); HEMATOCRIT 43.6 % (42.0-52.0); HEMOGLOBIN 15.8 g/dl (13.5-17.5); LYMPH # 1.6 10^3/uL (1.5-5.0); LYMPH % 23.2 % (24.0-44.0); MEAN CORPUSCULAR HEMOGLOBIN 31.2 pg (27.0-33.0); MEAN CORPUSCULAR HGB CONC 36.2 g/dl (32.0-36.5); MONO # 0.5 10^3/uL (0.0-0.8); MONO % 6.6 % (0.0-5.0); NEUTROPHILS # 4.8 10^3/uL (1.5-8.5); NEUTROPHILS % 68.7 % (36.0-66.0); PLATELET COUNT, AUTOMATED 225 10^3/uL (150-450); RED BLOOD COUNT 5.07 10^6/uL (4.30-6.10)
[2020-04-23 14:26] LABS: ALBUMIN 4.4 GM/DL (3.2-5.2); ALT/SGPT 27 U/L (12-78); BILIRUBIN,DIRECT 0.2 MG/DL (0.0-0.2); BLOOD UREA NITROGEN 13 MG/DL (7-18); CALCIUM LEVEL 9.3 MG/DL (8.5-10.1); CARBON DIOXIDE LEVEL 28 MEQ/L (21-32); CHLORIDE LEVEL 103 MEQ/L (98-107); CK-MB VALUE MASS 1.1 NG/ML (<3.6); CPK CREATINE PHOSPHOKINASE 153 U/L (39-308); CREATININE FOR GFR 0.94 MG/DL (0.70-1.30); FREE T4 1.19 NG/DL (0.76-1.46); GLOMERULAR FILTRATION RATE > 60.0 (>60); GLUCOSE, FASTING 101 MG/DL (70-100); LIPASE 103 U/L (73-393); MB/CK RELATIVE INDEX 0.72 (< OR =4); POTASSIUM SERUM 3.5 MEQ/L (3.5-5.1); SODIUM LEVEL 138 MEQ/L (136-145); THYROID STIMULATING HORMONE 0.938 uIU/ML (0.358-3.740); TOTAL PROTEIN 8.3 GM/DL (6.4-8.2); TROPONIN I < 0.02 NG/ML (< 0.10)
[2020-04-23] MEDS ORDERED: ISOVUE-370 76% 100ML VIAL As Ordered ONE (14:38)
--- NOTE | 2020-04-23 15:09 | REP ---
INDICATION: left sided chest pain. COMPARISON: None. TECHNIQUE: CT angiogram chest performed following the intravenous administration of 100 cc of Isovue 370. Sagittal and coronal reconstruction images are performed. FINDINGS: Lungs: Clear, no infiltrate or nodule. Mediastinum: No adenopathy. Pulmonary arteries: No evidence of pulmonary embolism. [place]: No adenopathy. Axilla: No adenopathy. Pleura: No effusion. Heart: Not enlarged. Thoracic aorta: No aneurysm or dissection. Upper abdominal structures: Unremarkable. Visualized osseous structures: Unremarkable. IMPRESSION: No CT evidence of pulmonary embolism.No infiltrate seen. <Electronically signed by Jey Agustin > 04/23/20 [id number]
--- NOTE | 2020-04-23 15:21 | REP ---
INDICATION: left sided chest pain and luq pain COMPARISON: None. TECHNIQUE: CT Scan of the abdomen and pelvis was performed with intravenous administration of 100 cc of Isovue 370, without oral contrast. FINDINGS: Lung bases: Unremarkable. Liver: Normal Gallbladder: Unremarkable. Spleen: Normal. Adrenals: Normal. Pancreas: Normal. Kidneys: Normal. Small and large bowel: Unremarkable. Free fluid: None. Abdominal aorta: No aneurysm or dissection. Adenopathy: None. Appendix: Not inflamed. Osseous structures: Unremarkable. Pelvis: No mass. IMPRESSION: Negative CT abdomen and pelvis. <Electronically signed by Jey Agustin > 04/23/20 [id number]
[2020-04-23 15:28] VITALS: BP 135/84
[2020-04-23] MEDS ORDERED: NEXI40CA PO (15:28)
--- NOTE | 2020-04-25 08:23 | ECGEPIP ---
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
== END 2020-04-23 15:35 | disposition home or self-care (01) ==
LOC: M ED 13:00
DX: J06.9 Acute upper respiratory infection, unspecified (principal); K21.9 Gastro-esophageal reflux disease without esophagitis; R07.9 Chest pain, unspecified; F17.200 Nicotine dependence, unspecified, uncomplicated; F41.9 Anxiety disorder, unspecified; R51.9 Headache, unspecified
CPT/HCPCS: 36415; 71275; 74177; 80048; 80076; 81001; 82550; 82553; 83690; 84439; 84443; 84484; 85025; 87486; 87581; 87633; 87798; 93005; 96374; 99284; J2060; Q9967